=== PATIENT | female | born 1995 | race Caucasian/White ===

== ENCOUNTER 2021-11-05 20:16 | Inpatient (IN) | payer OTHER, SELFPAY ==
[2021-11-06] VITALS (113 sets, daily range): BP systolic 83–147; BP diastolic 43–119; PULSE 75–188; RESP 16–18; TEMP 36.1–37.1; O2SAT 97–100; BMI 34.5
--- NOTE | 2021-11-06 01:48 | OBADM ---
This patient, Aide Chino, admitted to the OB room Labor/Delivery/Recovery 105 for observation. Patient/family oriented to hospital policies and general routines including ID bracelet, bed and alarms, visiting hours, pain management, procedures, bathroom and other care routines, personal items, smoking policy, room service/diet, and visiting hours. Patient/Family are encouraged to report perceived risks to care and to ask questions if they do not understand what they are told or what they should do.
[2021-11-06] MEDS: ONDANSETRON INJ 4 MG/2 ML VIAL IV PUSH (07:10)
[2021-11-06 07:20] LABS: Basophils Percent Auto 0.2 % (0.2-1.2); Eosinophils Percent Auto 0.2 % (0-4.4); Hematocrit 38.6 % (37.0-47.0); Hemoglobin 12.9 g/dL (12.0-15.0); Immature Granulocyte Absolute 0.06 K/mm3 (0.00-0.031); Immature Granulocyte Percent A 0.5 % (0-0.5); Lymphocytes Percent Auto 14.3 % (18.3-44.2); Mean Corpuscular HGB Conc 33.4 g/dl (32-36); Mean Corpuscular Hemoglobin 28.7 pg (26-34); Mean Corpuscular Volume 85.8 fl (80-100); Mean Platelet Volume 10.9 fl (7.4-10.4); Monocytes Absolute Auto 0.9 K/mm3 (0.1-0.6); Monocytes Percent Auto 6.7 % (2.6-8.5); Neutrophils Absolute Auto 10.4 K/mm3 (1.3-6.7); Neutrophils Percent Auto 78.1 % (45.5-73.1); Platelet Count Result 199 k/mm3 (150-375); Red Cell Distribution Width 13.7 % (11.5-14.5); White Blood Count 13.3 K/mm3 (4.5-10.0)
[2021-11-06] MEDS: LACTATED RINGERS 1,000 ML 125 ML IV CONT ×2 (07:41→08:32)
[2021-11-06] MEDS: AMPICILLIN 2 GM/NS 100 ML 2 GM/100 ML BAG IVPB (07:42)
[2021-11-06 07:43] LABS: Amphetamine Screen Urine Negative (Negative); Barbiturate Screen Urine Negative (Negative); Benzodiazepines Screen Urine Negative (Negative); Cannabinoid Screen Urine Positive (Negative); Cocaine Screen Urine Negative (Negative); Methadone Screen Urine Negative (Negative); Opiate Screen Urine Negative (Negative); Phencyclidine Screen Urine Negative (Negative)
--- NOTE | 2021-11-06 07:56 | WPDOBADMIT ---
Obstetrics - Admit Note Admission Note: record reviewed. No pertinent additions to the history and/or any subsequent changes in the physical findings that are not consistent with the expected course of the were found. augmentation, pt arrived in early labor, gbs +, SBE 4-5/100/-2, anticipate vaginal delivery Additions to the history and/or subsequent changes in the physical findings follow. None.
[2021-11-06 08:17] LABS: HIV 1/2 Ab P24 Ag Result Negative (Negative)
--- NOTE | 2021-11-06 08:48 | WPDANESEPP ---
Anes - Eval Pre Procedure Procedure: labor pain management Date/Time: 11/06/21 08:48 Surgeon: Cherelle Preop Diagnosis: pain during labor Pre Op Diagnosis: Contractions Patient Data Age: 26 Gender: F Height: 1.55 m Weight: 83 kg Last Vital Signs Temp 98.7 F 11/06/21 04:00 Pulse 91 11/06/21 08:45 BP 116/64 11/06/21 08:45 Pulse Ox 100 11/06/21 08:45 O2 Del Method Room Air 11/05/21 20:30 Allergies Allergy/AdvReac Type Severity Reaction Status Date / Time No Known Allergies Allergy Verified 10/13/21 15:35 Home Medications Medication Instructions Recorded Confirmed Type ferrous sulfate 250 mg (50 mg 250 mg PO DAILY 10/13/21 10/13/21 History iron) tablet,extended release prenat.vits,yoshi,[id number] 1 tablet PO HS 10/13/21 10/13/21 History Laboratory Tests 11/06/21 11/06/21 11/06/21 06:51 06:51 06:51 WBC 13.3 K/mm3 H K/mm3 (4.5-10.0) RBC 4.50 M/mm3 M/mm3 (4.2-5.4) Hgb 12.9 g/dL g/dL (12.0-15.0) Hct 38.6 % % (37.0-47.0) MCV 85.8 fl fl (80-100) MCH 28.7 pg pg (26-34) MCHC 33.4 g/dl g/dl (32-36) RDW 13.7 % % (11.5-14.5) Plt Count 199 k/mm3 k/mm3 (150-375) MPV 10.9 fl H fl (7.4-10.4) Immature Gran % (Auto) 0.5 % % (0-0.5) Neut % (Auto) 78.1 % H % (45.5-73.1) Lymph % (Auto) 14.3 % L % (18.3-44.2) [place] % (Auto) 6.7 % % (2.6-8.5) Eos % (Auto) 0.2 % % (0-4.4) Baso % (Auto) 0.2 % % (0.2-1.2) Lymph # (Auto) 1.90 K/mm3 K/mm3 (0.9-3.2) [place] # (Auto) 0.9 K/mm3 H K/mm3 (0.1-0.6) Eos # (Auto) 0.0 K/mm3 K/mm3 (0-0.3) Baso # (Auto) 0.0 K/mm3 K/mm3 (0.0-0.1) Abs Immat Gran (auto) 0.06 K/mm3 H K/mm3 (0.00-0.031) Absolute Neuts (auto) 10.4 K/mm3 H K/mm3 (1.3-6.7) Absolute Nucleated RBC 0.0 K/mm3 K/mm3 (0.0-0.012) Nucleated RBC % 0.0 % % (0.0-0.2) Urine Opiates Screen Urine Methadone Screen Ur Barbiturates Screen Ur Phencyclidine Scrn Ur Amphetamine Screen U Benzodiazepines Scrn Urine Cocaine Screen U Cannabinoids Screen Methyl Alcohol Level RPR Pending HIV 1&2 Ab/P24 Ag 4thGn Blood Type AB Positive Antibody Screen Negative 11/06/21 11/06/21 11/06/21 06:51 07:06 07:16 WBC RBC Hgb Hct MCV MCH MCHC RDW Plt Count MPV Immature Gran % (Auto) Neut % (Auto) Lymph % (Auto) [place] % (Auto) Eos % (Auto) Baso % (Auto) Lymph # (Auto) [place] # (Auto) Eos # (Auto) Baso # (Auto) Abs Immat Gran (auto) Absolute Neuts (auto) Absolute Nucleated RBC Nucleated RBC % Urine Opiates Screen Negative (Negative) Urine Methadone Screen Negative (Negative) Ur Barbiturates Screen Negative (Negative) Ur Phencyclidine Scrn Negative (Negative) Ur Amphetamine Screen Negative (Negative) U Benzodiazepines Scrn Negative (Negative) Urine Cocaine Screen Negative (Negative) U Cannabinoids Screen Positive A (Negative) Methyl Alcohol Level Pending RPR HIV 1&2 Ab/P24 Ag 4thGn Negative (Negative) Blood Type Antibody Screen Patient hx anesthesia problems: none Family hx anesthesia problems: none Results Review: All pre-operative results and documents have been reviewed as part of the pre-operative evaluation. [facility] Family History Family
[2021-11-06 10:57] LABS: Ethanol < 10 mg/dL (<10)
--- NOTE | 2021-11-06 12:19 | PM.OBPRVD ---
OB - Delivery Note Procedure Delivery date: 11/06/21 Procedure: vaginal delivery Induction method: AROM Delivery augmentation: Rupture of Membranes and Pitocin Delivery monitor: External FHT and Internal Uterine Route of delivery: Episiotomy description: None Laceration Description: None Quantitative Blood Loss (ml): 100 Anesthesia type: Epidural Disposition: Floor Narrative: mom and baby stable and doing skin to skin Baby Date of : 11/06/21 Weeks of gestation at delivery: 39 Infant gender: Male presentation: vertex position: Left Occiput Anterior Placenta delivery description: Spontaneous Cord Vessel Description: 3 Vessels, Nuchal Cord, Tight and Clamped/Cut
[2021-11-06] MEDS: OXYTOCIN 30 UNITS/NS 500 ML 30 UNITS/500 ML BAG 125 UNITS IV CONT (12:40)
--- NOTE | 2021-11-06 14:04 | LDADM ---
This patient, Aide Chino, was admitted to Labor/Delivery/Recovery 105 on 11/06/21 at 06:15. Plans for labor, pain management and were discussed with patient. Patient/family oriented to hospital policies and general routines including ID bracelet, bed and alarms, visiting hours, pain management, procedures, bathroom and other care routines, personal items, smoking policy, room service/diet and guest tray routines, security routines, and visiting hours. Patient/Family are encouraged to report perceived risks to care and to ask questions if they do not understand what they are told or what they should do. See OBIX for further documentation.
--- NOTE | 2021-11-06 14:46 | PCCCNOTE ---
Care Coordination. Pt. referred to CC for positive marijuana on admission and history of substance use during . Per RNRenata, pt. was positive for THC and benzo and then positive Oct.02 for THC and alcohol in records. Pt. reports they must be false positives and denies any substance use except THC and about 3 glasses of wine throughout . Pt. reports plans to return home with significant other. Pt. reports this is her first baby and sig other's 7th baby. Pt. reports having all necessary baby care items and plans to get setup with [facility] in [place]. She denies needs for any resource information. Pt. aware that I was contacting [facility] due to positive screens. Baby has Umbilical toxicology pending. Spoke with Kavon Durham at [facility] hotline and reports unless has positive drug screen that he will take pt.'s situation as information only Intake ID# [id number]. Notified pt.'s RN, Renata, of above.
--- NOTE | 2021-11-06 14:46 | PC.NURSE ---
[id number] Introductions were made, then consulted with patient to assess needs related to after a call from the nursery RN almost 2 hours after delivery. Mother led the conversation with her?plans to feed?her infant as she cradles her infant wrapped up in a blanket sleeping. Mother received offer of assistance. Mother works well with her with encouragement and education. Encouraged understanding of the benefits of skin to skin (unwrapping and placing vertically on her chest), responsive feeding and how to watch for early feeding signs, frequency of feeding on demand about every 8-12 times in 24 hours (every 2-3 hours), milk production, demonstrated the sandwich hold to assist with latching, hand expression was practiced while infant was upright skin to skin on mothers chest not demonstrating feeding cues. RN observed rare open mouth movements, recessed chin, and no efforts to latch. Mother is undecided if she wants to breastfeed, pump/feed, or bottle feed with formula. Encouraged mother on watching for feeding signs, reviewed skin to skin, hand expression, stimulating with burping, massaging touch, and giving her time to navigate the new world. Reported to nursery RN there was no attempts from infant to latch.
[2021-11-06 16:51] LABS: Rapid Plasma Reagin Non-Reactive (NonReactive)
--- NOTE | 2021-11-06 17:37 | PC.NURSE ---
Patient transferred to post room # 278 via wheelchair. Support person present. Oriented to unit, room, information board, rooming in, admission packet and security measures. Patient verbalizes understanding.
[2021-11-07 04:00] VITALS: BP 114/62; PULSE 87; RESP 18; TEMP 35.9; O2SAT 100
[2021-11-07 05:02] LABS: Hematocrit 30.2 % (37.0-47.0); Hemoglobin 9.9 g/dL (12.0-15.0)
--- NOTE | 2021-11-07 07:22 | PM.OBPNVD ---
OB - PN: Subj Subjective Date/time seen: 11/07/21 07:22 Patient comments: no complaints baby status: bottle feeding well [place] feeding status: breast and bottle feeding Narrative: would like DC home if ok with rn advanced OB - PN: Obj Data Labs CBC & Chem 7: 11/07/21 03:43 Labs: Laboratory Results - last 24 hr 11/06/21 11/06/21 11/06/21 06:51 06:51 06:51 WBC 13.3 H RBC 4.50 Hgb 12.9 Hct 38.6 MCV 85.8 MCH 28.7 MCHC 33.4 RDW 13.7 Plt Count 199 MPV 10.9 H Immature Gran % (Auto) 0.5 Neut % (Auto) 78.1 H Lymph % (Auto) 14.3 L [place] % (Auto) 6.7 Eos % (Auto) 0.2 Baso % (Auto) 0.2 Lymph # (Auto) 1.90 [place] # (Auto) 0.9 H Eos # (Auto) 0.0 Baso # (Auto) 0.0 Abs Immat Gran (auto) 0.06 H Absolute Neuts (auto) 10.4 H Absolute Nucleated RBC 0.0 Nucleated RBC % 0.0 Urine Opiates Screen Urine Methadone Screen Ur Barbiturates Screen Ur Phencyclidine Scrn Ur Amphetamine Screen U Benzodiazepines Scrn Urine Cocaine Screen U Cannabinoids Screen Ethyl Alcohol RPR Non-reactive HIV 1&2 Ab/P24 Ag 4thGn Blood Type AB Positive Antibody Screen Negative 11/06/21 11/06/21 11/06/21 06:51 07:16 07:16 WBC RBC Hgb Hct MCV MCH MCHC RDW Plt Count MPV Immature Gran % (Auto) Neut % (Auto) Lymph % (Auto) [place] % (Auto) Eos % (Auto) Baso % (Auto) Lymph # (Auto) [place] # (Auto) Eos # (Auto) Baso # (Auto) Abs Immat Gran (auto) Absolute Neuts (auto) Absolute Nucleated RBC Nucleated RBC % Urine Opiates Screen Negative Urine Methadone Screen Negative Ur Barbiturates Screen Negative Ur Phencyclidine Scrn Negative Ur Amphetamine Screen Negative U Benzodiazepines Scrn Negative Urine Cocaine Screen Negative U Cannabinoids Screen Positive A Ethyl Alcohol < 10 RPR HIV 1&2 Ab/P24 Ag 4thGn Negative Blood Type Antibody Screen 11/07/21 03:43 WBC RBC Hgb 9.9 L D Hct 30.2 L MCV MCH MCHC RDW Plt Count MPV Immature Gran % (Auto) Neut % (Auto) Lymph % (Auto) [place] % (Auto) Eos % (Auto) Baso % (Auto) Lymph # (Auto) [place] # (Auto) Eos # (Auto) Baso # (Auto) Abs Immat Gran (auto) Absolute Neuts (auto) Absolute Nucleated RBC Nucleated RBC % Urine Opiates Screen Urine Methadone Screen Ur Barbiturates Screen Ur Phencyclidine Scrn Ur Amphetamine Screen U Benzodiazepines Scrn Urine Cocaine Screen U Cannabinoids Screen Ethyl Alcohol RPR HIV 1&2 Ab/P24 Ag 4thGn Blood Type Antibody Screen OB - PN A/P Assessment and Plan (1) , delivered: Code(s): O80 - Encounter for full-term uncomplicated delivery Status: Acute Plan day: 1 Plan: routine care and discharge home Time Spent With Patient Time: Total time spent is greater than 50% in coordination of care (as documented) at patient's floor/unit and/or counseling patient: Time with patient: less than 15 minutes Exam Narrative: NAD abdomen soft, nontender, fundus firm below the umbilicus Extremities nontender, 1+ edema
--- NOTE | 2021-11-07 07:29 | PM.OBDSVD ---
DS: Admitting Diagnosis Discharge Date 11/07/21 Admitting Diagnosis term IUP DS: Discharge Diagnosis Discharge Diagnosis (1) , delivered: Code(s): O80 - Encounter for full-term uncomplicated delivery Status: Acute OB - DS: Summary Hospital Course Hospital Course: Aide was admitted in labor at term. She proceeded to have an uncomplicated vaginal delivery at term. OB Procedures : Ultrasound OB Procedures Intrapartum: Spontaneous Vag Delivery OB Procedures: : None Peripartum Data Infant Delivery Method: Natural Vaginal Status at Discharge Functional status at discharge: independent ambulation Time Spent with Patient Time attestation: Total time spent providing and/or coordinating discharge services: Exam Narrative: NAD abdomen soft, appropriately tender Ext non tender, 1+ edema DS: Data Data Completed and Pending Labs on day of discharge: Labs from last 24 hours 11/07/21 11/06/21 11/06/21 03:43 07:16 07:16 Hgb 9.9 L D Hct 30.2 L Urine Opiates Screen Urine Methadone Screen Ur Barbiturates Screen Ur Phencyclidine Scrn Ur Amphetamine Screen U Benzodiazepines Scrn Urine Cocaine Screen U Cannabinoids Screen Ethyl Alcohol < 10 RPR HIV 1&2 Ab/P24 Ag 4thGn Negative Blood Type Antibody Screen 11/06/21 11/06/21 11/06/21 06:51 06:51 06:51 Hgb Hct Urine Opiates Screen Negative Urine Methadone Screen Negative Ur Barbiturates Screen Negative Ur Phencyclidine Scrn Negative Ur Amphetamine Screen Negative U Benzodiazepines Scrn Negative Urine Cocaine Screen Negative U Cannabinoids Screen Positive A Ethyl Alcohol RPR Non-reactive HIV 1&2 Ab/P24 Ag 4thGn Blood Type AB Positive Antibody Screen Negative Discharge Plan Discharge Attending physician on discharge: Lizbeth Hathaway Discharging Clinician: Lizbeth Hathaway Anticipated Discharge Date/Time: 11/07/21 14:00 Patient Disposition: Home, Self-Care Activity: pelvic rest Diet: regular Patient Instructions: Antibiotic Form Stand Alone Forms: General Discharge Information Follow-up/Referrals: Herminio Villarreal MD [Physician] - 4 Weeks Discharge Medications: Continued #2 Tablet 1 tablet PO HS ferrous sulfate 250 mg (50 mg iron) Tablet Extended Release 250 mg PO DAILY Date of admission: 11/06/21 06:15 Primary Care Provider: Paulette Trevino Admitting Provider: Herminio Villarreal Attending physician on admission: Herminio Villarreal Condition: Stable
[2021-11-07 08:00] VITALS: BP 127/69; PULSE 79; RESP 18; TEMP 36.4; O2SAT 100
[2021-11-07] MEDS: POLYSACCHARIDE IRON COMPLEX 150 MG CAPSULE PO (08:02)
[2021-11-07] MEDS: MULTIVIT/MIN/PREN/FOL AC/IRON TABLET 1 TAB PO (08:02)
[2021-11-07] MEDS: DOCUSATE SODIUM 100 MG CAPSULE PO (08:02)
[2021-11-07] MEDS: DIBUCAINE 1% OINTMENT 30 GM TUBE 1 APPLIC TOPICAL (08:06)
--- NOTE | 2021-11-07 10:06 | WPDANLDPN2 ---
Anes-Prog Note L&D Date/Time: 11/07/21 10:06 Neuro status: Neuro function grossly intact. Vital Signs: Last Vital Signs Temp 35.9 C L 11/07/21 04:00 Pulse 87 11/07/21 04:00 Resp 18 11/07/21 04:00 BP 114/62 11/07/21 04:00 Pulse Ox 100 11/07/21 04:00 O2 Del Method Room Air 11/07/21 07:55 Pain score (VAS): 0 Patient feedback: Patient satisfied with anesthetic care.
[2021-11-07] MEDS: TETANUS,DIPHTHERIA,AC PERTUSSIS ADULT (0.5 ML) BOOSTRIX IM (12:31)
[2021-11-07 12:35] VITALS: BP 135/70; PULSE 93; RESP 18; TEMP 36; O2SAT 100
[2021-11-10 04:16] LABS: Methyl Alcohol Level None Detected (None Detected)
== END 2021-11-07 15:30 | disposition home or self-care (01) | DRG 560 ==
LOC: ANHLDR 23:19 → ANHOB2 11-07 07:29 → ANHLDR 11-10 10:45 → ANHOB2 11-10 10:45
PROVIDERS: Advanced Practice Midwife; Admitting Provider Obstetrics & Gynecology; PCP Family Medicine; Visit Provider Obstetrics & Gynecology
DX: O99.824 Streptococcus B carrier state complicating childbirth (principal); O69.1XX0 Labor and delivery complicated by cord around neck, with compression, not applicable or unspecified; Z3A.39 39 weeks gestation of pregnancy; Z37.0 Single live birth
CPT/HCPCS: 36415; 80307; 84600; 85014; 85018; 85025; 86592; 86703; 86850; 86900; 86901; 90715; A9270; G0432; J0290; J2405; J2590; J2795; J7120